=== PATIENT | male | born 1990 | race Caucasian/White ===

== ENCOUNTER 2020-12-15 15:06 | Emergency (ER) | payer OTHER ==
[2020-12-15] MEDS ORDERED: MYCOSTATIN POWD15 GM TOP (17:40)
== END 2020-12-15 17:48 | disposition home or self-care (01) ==
LOC: ER1 15:06
DX: R21 Rash and other nonspecific skin eruption (principal); Z88.0 Allergy status to penicillin; Z79.899 Other long term (current) drug therapy; F17.210 Nicotine dependence, cigarettes, uncomplicated; Z20.822 Contact with and (suspected) exposure to COVID-19
CPT/HCPCS: 99283; U0002